=== PATIENT | female | born 1980 | race Caucasian/White ===

== ENCOUNTER 2018-01-29 17:50 | Emergency (ER) | payer OTHER ==
[~2018-01-29] VITALS: Ht 167.6 cm; Wt 71.2 kg
== END 2018-01-29 20:46 | disposition home or self-care (01) ==
LOC: ER 17:50
DX: O20.8 Other hemorrhage in early pregnancy (principal); Z34.81 Encounter for supervision of other normal pregnancy, first trimester

== ENCOUNTER 2019-04-04 14:16 | Inpatient (IN) | payer OTHER ==
[~2019-04-04] VITALS: Ht 167.6 cm; Wt 82.1 kg
[2019-04-25] MEDS ORDERED: PRENATAL TABLE1 EAC2 PO (09:23)
== END 2019-04-27 14:39 | disposition home or self-care (01) | DRG 807 ==
LOC: LDR 04-25 07:18 → OB/GYN 04-25 20:37
PROVIDERS: ADMIT Obstetrics & Gynecology
PROC: 10E0XZZ Delivery of Products of Conception, External Approach (ICD-10-PCS; principal; 2019-04-25)
PROC: 0HQ9XZZ Repair Perineum Skin, External Approach (ICD-10-PCS; 2019-04-25)
PROC: 3E033VJ Introduction of Other Hormone into Peripheral Vein, Percutaneous Approach (ICD-10-PCS; 2019-04-25)
PROC: 4A1HXCZ Monitoring of Products of Conception, Cardiac Rate, External Approach (ICD-10-PCS; 2019-04-25)
DX: O70.0 First degree perineal laceration during delivery (principal); Z37.0 Single live birth; Z3A.39 39 weeks gestation of pregnancy